=== PATIENT | male | born 1970 | race Caucasian/White ===

== ENCOUNTER 2016-09-06 16:11 | Emergency (ER) | payer BC, SELFPAY ==
--- NOTE | 2016-09-14 17:48 | ER ---
ADMIT: 09/06/2016 RM/LOC: ER [facility] MR#: [id number] [address] [id number] ANDREI WING [address] [place] [id number] Emergency Room Report SEX: M AGE: 45 : 1970 DATE: 09/06/2016 HISTORY OF PRESENT ILLNESS: The patient is a 45-year-old male, presents to emergency room with chest pressure for 2 days now. It has gotten worse. He says that he has difficulty breathing for the last 5 days. He has been on antibiotics, Amoxil for an upper respiratory infection. He says he has had some issues that he thinks are all related to the amoxicillin side affects. He has had chills for the last five nights, shortness of breath. He does denies, however, some heartburn but he admits to having some loss of appetite. He also stated at the same time that he has changed his eating behavior and is able to juice more, but yet does not know why he is losing weight, so I am not sure what he means by the last comment he made but leads me to believe that he is unintentionally losing weight. He seems to be extremely apprehensive, extremely nervous. PHYSICAL EXAMINATION: VITAL SIGNS: His blood pressure 122/81 with a heart rate of 101, respirations 14, temp is 99.7, and O2 sats 96%. GENERAL: He is alert and oriented. Tachycardic. ABDOMEN: Nontender although he points to the epigastrium but upon palpation, there is no tenderness. EXTREMITIES: Well perfused. NEUROLOGIC: Oriented x4. Mood and affect are anxious. LABORATORY DATA: H. pylori reactive. EKG 92 beats per minute, sinus rhythm. Chest x-ray within normal limits. CLINICAL IMPRESSION: 1. Gastritis. 2. Helicobacter pylori. Given a prescription for omeprazole and clarithromycin as he is already on amoxicillin and then encouraged to follow up with primary provider. He is in the ER given some Carafate for discomfort and discharge orders given. JERZY Kebede / Simone Rashid MD / chacha JOB #: [id number] CC: Simone Rashid MD, Attending Physician UNKNOWN, Family Physician
== END 2016-09-06 18:00 | disposition home or self-care (01) ==
LOC: ER 16:11
DX: K29.70 Gastritis, unspecified, without bleeding (principal); B96.81 Helicobacter pylori [H. pylori] as the cause of diseases classified elsewhere; Z90.49 Acquired absence of other specified parts of digestive tract; Z79.899 Other long term (current) drug therapy; Z88.1 Allergy status to other antibiotic agents